=== PATIENT | female | born 1990 | race Two or more races ===

== ENCOUNTER 2017-11-15 12:05 | Emergency (ER) | payer MEDICAID ==
[~2017-11-15] VITALS: Ht 162.6 cm; Wt 77.1 kg
[2017-11-15 12:19] VITALS: BP 122/77
[2017-11-15] MEDS ORDERED: AUGMENTIN 875-1 EAC1 ORAL (12:42)
--- NOTE | 2017-11-15 12:43 | Emergency Room Report ---
History of Present Illness General Chief Complaint: Animal Bite Source: Patient Present Illness HPI 27 yo female patient presents to ER complaining of cat bite x2 days ago. Reports pain at site of injury. Denies bleeding. Reports took one pill of abx medication but no pain relief medications. Denies chest pain, SOB, abdominal pain, fever, vomiting, red streaking. Denies other acute symptoms. Does not remember how long ago got tetanus vaccination. Allergies: Coded Allergies: No Known Allergies (Unverified , 11/15/17) Patient History Past Medical History: see triage record Last Menstrual Period: 11/13/17 Reviewed Nursing Documentation: PMH: Agreed; PSxH: Agreed Nursing Documentation-PMH Past Medical History: No Stated History Review of Systems All Other Systems: negative except mentioned in HPI Physical Exam Vital Signs Date Time Temp Pulse Resp B/P (MAP) Pulse Ox O2 Delivery O2 Flow Rate FiO2 11/15/17 12:19 98.2 82 18 122/77 98 Room Air 98.2 Sp02 EP Interpretation: reviewed, normal General Appearance: well appearing, no apparent distress, alert, GCS 15, non- toxic Head: normocephalic, atraumatic Eyes: bilateral eye normal inspection, bilateral eye PERRL ENT: hearing grossly normal, normal pharynx, no angioedema, normal voice, uvula midline, moist mucus membranes Neck: full range of motion Respiratory: lungs clear, normal breath sounds, no rhonchi, no respiratory distress, no accessory muscle use, no wheezing, speaking full sentences Cardiovascular #1: regular rate, rhythm, no edema Musculoskeletal: back normal, digits/nails normal, gait/station normal, normal range of motion, non-tender Neurologic: alert, oriented x3, responsive, motor strength/tone normal, sensory intact Psychiatric: mood/affect normal Skin: other - right foot dorsum, lateral border: 2 bite willett, mild erytehma, no red streaking, no surrounding tissue edema, no drainage Medical Decision Making PA Attestation Dr. Matthews is my supervising Physician whom patient management has been discussed with. Diagnostic Impression: Primary Impression: Cat bite ER Course Pt presents to ED c/o cat bite. DDX considered but are not limited to animal bite, abrasion, cellulitis, contusion, fracture. VITALS Patient is afebrile, WNL ED COURSE: pain medication provided. Superficial wounds on right foot, no active bleeding or draining. Wound clean. TDap provided to patient. Patient instructed to follow up with PCP for wound check in 2-3 days and complete full course of antibiotics. DISCHARGE: Rx provided for Augmentin. At this time pt is stable for d/c to home. resting comfortably, in no acute distress, nontoxic appearing, okay for discharge to home. Will provide with patient care instructions and any necessary prescriptions. Patient to take medication as instructed. Care plan and follow-up instructions provided. Patient questions asked and answered. ER precautions given. Patient instructed to return to ER immediately for any new or worsening of symptoms. - Please note that this Emergency Department Report was dictated using [employer] development manager technology software, occasionally this can lead to erroneous entry secondary to interpretation by the dictation equipment. Last Vital Signs Date Time Temp Pulse Resp B/P (MAP) Pulse Ox O2 Delivery O2 Flow Rate FiO2 11/15/17 12:19 98.2 82 18 122/77 98 Room Air 98.2 Disposition: HOME, SELF-CARE Condition: Stable Scripts Acetaminophen* (TYLENOL EXTRA STRENGTH*) 500 Mg Tablet 500 MG ORAL Q8H PRN for Prn Headache/Temp > 101, #30 TAB 0 Refills Prov: Yaw Blanco 11/15/17 Amoxicillin/Potassium Clav 875-125* (AUGMENTIN 875-125 TABLET*) 1 Each Tablet 1 TAB ORAL TWICE A DAY for 7 Days, #14 TAB Prov: Yaw Blanco 11/15/17 Patient Instructions: Animal Bite, [id number] Additional Instructions: Followup with primary care provider in 2-3 days for wound check. Take medications as directed. Patient questions asked and answered. ER precautions given, patient instructed to return to ER immediately for any new or worsening of symptoms including but not limited to fever, chest pain, shortness of breath, worsening of redness or swelling, red streaking. Yaw Blanco Nov 15, 2017 12:43
[2017-11-15] MEDS ORDERED: Acetaminophen 500mg (ES) tab ORAL ONE (12:45)
[2017-11-15] MEDS ORDERED: Tetanus/Diptheria/Pertussis Vaccine 0.5ml Syr IM ONE (12:45)
[2017-11-15] MEDS ORDERED: TYLENOL EXTRA500 MG ORAL (12:46)
[2017-11-15 12:57] VITALS: BP 122/77
== END 2017-11-15 13:00 | disposition home or self-care (01) ==
LOC: EMR 13:00
DX: S91.351A Open bite, right foot, initial encounter (principal); W55.01XA Bitten by cat, initial encounter; Y93.89 Activity, other specified; Y92.9 Unspecified place or not applicable; Z23 Encounter for immunization
CPT/HCPCS: 90471; 90715; 99283

== ENCOUNTER 2017-12-20 14:21 | Emergency (ER) | payer MEDICAID ==
[~2017-12-20] VITALS: Ht 162.6 cm; Wt 72.6 kg
[~2017-12-20 14:21] MED LIST: AUGMENTIN 875-1 EAC1 ORAL; TYLENOL EXTRA500 MG ORAL
--- NOTE | 2017-12-20 15:09 | Emergency Room Report ---
History of Present Illness General Chief Complaint: Abdominal Pain Source: Patient Present Illness HPI 27-year-old female patient presents ER complaining of abdominal cramps and "feeling faint" times one day. Reports cramps earlier today, reports history OF the past however states "these worse". Denies dysuria, hematuria, vaginal discharge. Reports last menstrual period was at the beginning of the month, normal for her, states mild spotting symptoms during that time, states no bleeding since that time. denies diarrhea or constipation. Report hx of surgery when she was a "few years old" to remove an ovary, states no complications. Denies history of heart disease or syncope in the past. Reports history of panic attacks, states this "felt like a panic attack". denies change in position or other symptoms at onset of feeling faint. Denies symptoms at this time. Denies fever, chest pain, shortness of breath, other acute symptoms. reports that she does not eat a lot of red meat in her diet, states she eats burgers once a month. Denies history of anemia. denies vertigo, vision changes , tinnitus. Denies drinking, drugs, alcohol. Allergies: Coded Allergies: No Known Allergies (Unverified , 11/15/17) Patient History Past Medical History: see triage record Last Menstrual Period: 11/09/2017 Reviewed Nursing Documentation: PMH: Agreed; PSxH: Agreed Nursing Documentation-PMH Past Medical History: No History, Except For History Of Psychiatric Problem: Yes - panic attack Review of Systems All Other Systems: negative except mentioned in HPI Physical Exam Vital Signs Date Time Temp Pulse Resp B/P (MAP) Pulse Ox O2 Delivery O2 Flow Rate FiO2 12/20/17 14:33 98.4 71 14 133/95 97 Room Air 98.4 Sp02 EP Interpretation: reviewed, normal General Appearance: well appearing, no apparent distress, alert, GCS 15, non- toxic Head: normocephalic, atraumatic Eyes: bilateral eye normal inspection, bilateral eye PERRL ENT: hearing grossly normal, normal pharynx, no angioedema, normal voice, TMs + canals normal, uvula midline, moist mucus membranes Neck: full range of motion Respiratory: lungs clear, normal breath sounds, no rhonchi, no respiratory distress, no accessory muscle use, no wheezing, speaking full sentences Cardiovascular #1: regular rate, rhythm, no edema Gastrointestinal: non tender, soft, no mass, non-distended, no guarding, no rebound Genitourinary: no CVA tenderness Musculoskeletal: back normal, digits/nails normal, gait/station normal, normal range of motion, non-tender Neurologic: alert, oriented x3, responsive, motor strength/tone normal, sensory intact Psychiatric: mood/affect normal Skin: no rash Lymphatic: no adenopathy Medical Decision Making PA Attestation Dr. Loera is my supervising Physician whom patient management has been discussed with. Diagnostic Impression: Primary Impression: Abdominal cramping Additional Impression: Feeling faint ER Course Pt. presents to the ED c/o cramps and near faint. Ddx considered but are not limited to arrhythmia, anemia, UTI, abnormality, blood sugar abnormality, , gas pain. cranial nerves intact assessment, no focal neuro deficits, no history of vertigo or tinnitus, low suspicion for intracranial pathology regarding head CT at this time. patient resting comfortably in bed, negative obturator, negative Rovsing, low suspicion for appendicitis, does not require CT of abdomen at this time. Low suspicion for ovarian torsion, patient nontoxic appearing, answering questions, no abdominal TTP, no vaginal bleeding, no fever, no vomiting, no palpable mass. Vital signs: are WNL, pt. is afebrile ER COURSE: CBC and CMP unremarkable, normal H&H, no signs of anemia, no elevation WBCs, electrolytes within normal limits, blood glucose normal UA unremarkable, no signs of infection Urine negative discuss results with patient. Due to hx believe cramps likely related to bowel gas, Will provide patient with simethicone for gas relief, otherwise follow-up with PCP and [facility]. contact info for free and low-cost healthcare clinics provided. Drink plenty of fluids. EKG no ST elevations or arrhythmia, low suspicion for cardiac etiology, does not require cardiac workup, followup with PCP for further referral as needed. contact information for mental health urgent care, instructed to follow-up with them to discuss panic attacks. Denies suicidal or homicidal ideation. Patient states she is feeling better, okay for discharge to home. Patient is resting comfortably in bed in no acute distress, ambulating independently without difficulty, denies feeling faint symptoms currently. ER precautions given. DISCHARGE: Rx provided for Tylenol Rx provided for Simethicone At this time pt is stable for d/c to home. Patient is resting comfortably, in no acute distress, nontoxic appearing, talking without difficulty. Patient to take medications as instructed Will provide with patient care instructions and any necessary prescriptions. Care plan and follow-up instructions provided. Patient instructed to follow-up with primary care provider in 3 - 5 days. Patient questions asked and answered. Patient reports understanding and agreement to treatment plan. ER precautions given. Patient instructed to return to ER immediately for any new or worsening of symptoms including but not limited to increasing SOB, persistent fever, chest pain, intractable vomiting. - Please note that this Emergency Department Report was dictated using [employer] and safety inspector technology software, occasionally this can lead to erroneous entry secondary to interpretation by the dictation equipment. Labs Test 12/20/17 14:43 12/20/17 15:25 Urine Color Pale yellow Urine Appearance Slightly cloudy Urine pH 7 (4.5-8.0) Urine Specific [place] 1.020 (1.005-1.035) Urine Protein Negative (NEGATIVE) Urine Glucose (UA) Negative (NEGATIVE) Urine Ketones Negative (NEGATIVE) Urine Blood Negative (NEGATIVE) Urine Nitrite Negative (NEGATIVE) Urine Bilirubin Negative (NEGATIVE) Urine Urobilinogen Normal MG/DL (0.0-1.0) Urine Leukocyte Esterase Negative (NEGATIVE) Urine RBC 0-2 /HPF (0 - 2) Urine WBC 0-2 /HPF (0 - 2) Urine Squamous Epithelial Cells Moderate /LPF (NONE/OCC) Urine Bacteria Occasional /HPF (NONE) Urine HCG, Qualitative Negative (NEGATIVE) White Blood Count 8.3 K/UL (4.8-10.8) Red Blood Count 4.88 M/UL (4.20-5.40) Hemoglobin 14.1 G/DL (12.0-16.0) Hematocrit 42.7 % (37.0-47.0) Mean Corpuscular Volume 87 FL (80-99) Mean Corpuscular Hemoglobin 29.0 PG (27.0-31.0) Mean Corpuscular Hemoglobin Concent 33.1 G/DL (32.0-36.0) Red Cell Distribution Width 11.3 % (11.6-14.8) Platelet Count 216 K/UL (150-450) Mean Platelet Volume 8.3 FL (6.5-10.1) Neutrophils (%) (Auto) 74.8 % (45.0-75.0) Lymphocytes (%) (Auto) 17.4 % (20.0-45.0) Monocytes (%) (Auto) 7.0 % (1.0-10.0) Eosinophils (%) (Auto) 0.3 % (0.0-3.0) Basophils (%) (Auto) 0.5 % (0.0-2.0) Sodium Level 140 MMOL/L (136-145) Potassium Level 3.9 MMOL/L (3.5-5.1) Chloride Level 104 MMOL/L (98-107) Carbon Dioxide Level 30 MMOL/L (21-32) Anion Gap 6 mmol/L (5-15) Blood Urea Nitrogen 10 mg/dL (7-18) Creatinine 0.7 MG/DL (0.55-1.30) Estimat Glomerular Filtration Rate > 60 mL/min (>60) Glucose Level 99 MG/DL (74-106) Calcium Level 9.4 MG/DL (8.5-10.1) Total Bilirubin 0.4 MG/DL (0.2-1.0) Aspartate Amino Transf (AST/SGOT) 13 U/L (15-37) Alanine Aminotransferase (ALT/SGPT) 18 U/L (12-78) Alkaline Phosphatase 57 U/L (46-116) Total Protein 7.3 G/DL (6.4-8.2) Albumin 3.9 G/DL (3.4-5.0) Globulin 3.4 g/dL Albumin/Globulin Ratio 1.1 (1.0-2.7) EKG Diagnostic Results Rate: normal Rhythm: NSR ST Segments: no acute changes ASA given to the pt in ED: No PA Scribe Text Milad Blanco PA-C Rhythm Strip Diag. Results EP Interpretation: yes Rate: 64 Rhythm: NSR, no PVC's, no ectopy PA Scribe Text Milad Blanco PA-C Last Vital Signs Date Time Temp Pulse Resp B/P (MAP) Pulse Ox O2 Delivery O2 Flow Rate FiO2 12/20/17 14:33 98.4 71 14 133/95 97 Room Air 98.4 Disposition: HOME, SELF-CARE Condition: Stable Scripts Acetaminophen* (TYLENOL EXTRA STRENGTH*) 500 Mg Tablet 500 MG ORAL Q8H PRN for Prn Headache/Temp > 101, #30 TAB 0 Refills Prov: Yaw Blanco 12/20/17 Simethicone* (SIMETHICONE*) 80 Mg Tab.chew 80 MG ORAL Q8H PRN for GAS PAIN, #20 TAB 0 Refills Prov: Yaw Blanco 12/20/17 Patient Instructions: Abdominal Pain, Adult, Abnormal Uterine Bleeding, Panic Attacks, [id number], Syncope, [id number], Vasovagal Syncope, Adult Additional Instructions: Followup with primary care provider in 3 -5 days. Call insurance to establish PCP. Followup with free and low cost health care clinics. Follow-up with [facility]. Drink plenty of fluids. Take medications as directed. Patient questions asked and answered. ER precautions given, patient instructed to return to ER immediately for any new or worsening of symptoms. Yaw Blanco Dec 20, 2017 15:09
[2017-12-20 15:10] LABS: APPEARANCE,URINE SLIGHTLY CLOUDY; BILIRUBIN, URINE NEGATIVE (NEGATIVE); COLOR,URINE PALE YELLOW; GLUCOSE, URINE (UA) NEGATIVE (NEGATIVE); KETONES,URINE NEGATIVE (NEGATIVE); LEUKOCYTE ESTERASE ,URINE NEGATIVE (NEGATIVE); NITRITE,URINE NEGATIVE (NEGATIVE); PH,URINE 7 (4.5-8.0); PROTEIN,URINE NEGATIVE (NEGATIVE); UROBILINOGEN,URINE NORMAL MG/DL (0.0-1.0)
[2017-12-20] MEDS ORDERED: Acetaminophen 500mg (ES) tab ORAL ONE (15:15)
[2017-12-20 15:57] LABS: ANION GAP 6 mmol/L (5-15); BLOOD UREA NITROGEN 10 mg/dL (7-18); CALCIUM 9.4 MG/DL (8.5-10.1); CARBON DIOXIDE 30 MMOL/L (21-32); CHLORIDE 104 MMOL/L (98-107); CREATININE 0.7 MG/DL (0.55-1.30); POTASSIUM 3.9 MMOL/L (3.5-5.1); SODIUM 140 MMOL/L (136-145)
[2017-12-20 15:59] LABS: BASOPHILS % (AUTO) 0.5 % (0.0-2.0); EOSINOPHILS % (AUTO) 0.3 % (0.0-3.0); HEMATOCRIT 42.7 % (37.0-47.0); HEMOGLOBIN 14.1 G/DL (12.0-16.0); LYMPHOCYTES % (AUTO) 17.4 % (20.0-45.0); MEAN CORPUSCULAR VOLUME 87 FL (80-99); NEUTROPHILS % (AUTO) 74.8 % (45.0-75.0); PLATELET COUNT 216 K/UL (150-450); RED BLOOD COUNT 4.88 M/UL (4.20-5.40); RED CELL DISTRIBUTION WIDTH 11.3 % (11.6-14.8); WHITE BLOOD COUNT 8.3 K/UL (4.8-10.8)
[2017-12-20 16:02] LABS: ALANINE AMINOTRANSFERASE 18 U/L (12-78); ALBUMIN 3.9 G/DL (3.4-5.0); ALBUMIN/GLOBULIN RATIO 1.1 (1.0-2.7); ALKALINE PHOSPHATASE 57 U/L (46-116); ASPARTATE AMINO TRANSFERASE 13 U/L (15-37); BILIRUBIN,TOTAL 0.4 MG/DL (0.2-1.0)
[2017-12-20] MEDS ORDERED: SIMETHICONE80 MG ORAL (16:15)
[2017-12-20] MEDS ORDERED: TYLENOL EXTRA500 MG ORAL (16:15)
[2017-12-20 16:25] VITALS: BP 116/77
--- NOTE | 2017-12-23 16:13 | Cardiology Report ---
APPROVED REPORT EKG Measurement Heart [id number] ID [id number] Normal sinus rhythm with sinus arrhythmia RSR' or QR pattern in V1 suggests right ventricular conduction delay Borderline ECG
== END 2017-12-20 16:25 | disposition home or self-care (01) ==
LOC: EMR 15:39
DX: R10.9 Unspecified abdominal pain (principal)
CPT/HCPCS: 36415; 80053; 81003; 81025; 85025; 93005; 99283